=== PATIENT | male | born 1940 | race Caucasian/White ===

== ENCOUNTER 2020-03-02 09:07 | Outpatient (RCR) | payer MEDICARE, SELFPAY | END 2020-03-02 23:59 | LOC: IMMUN 09:07 | PROVIDERS: PCP Family Medicine; Visit Provider Family Medicine | DX: Z23 Encounter for immunization (principal) | CPT/HCPCS: 0011A; 0012A; 91301 ==

== ENCOUNTER 2020-10-16 21:11 | Emergency (ER) | payer MEDICARE, SELFPAY ==
[2020-10-16 21:12] VITALS: BP 139/108; PULSE 66; RESP 18; TEMP 36.6; O2SAT 97; BMI 22.1
--- NOTE | 2020-10-16 21:18 | RAD_ITS ---
STUDY: X-RAY - RIGHT SHOULDER REASON FOR EXAM: Male, 80 years old. FALL TECHNIQUE: 2 view(s) of the shoulder. COMPARISON: Right shoulder x-ray dated MAY 28, 2012 FINDINGS: There is complete anterior and slight inferior dislocation of the humeral head from the glenoid. An impacted and slightly displaced fracture of the anterior inferior aspect of the glenoid is present as well. No visualized fracture of the humerus on the provided images. Normal acromioclavicular joint. Normal acromion. Normal humeral head and visualized proximal humerus. The soft tissue structures are unremarkable. Normal visualized pulmonary apex. RAD/Shoulder min 2 Views IMPRESSION: 1. Complete anterior and slight inferior dislocation of the humeral head from the glenoid. 2. An impacted and slightly displaced fracture of the anterior inferior aspect of the glenoid is present as well. No visualized fracture of the humerus on the provided images. Electronically Signed: Mt Gambino MD at 22:27 EDT , Service support ,
--- NOTE | 2020-10-16 22:03 | RAD_ITS ---
STUDY: X-RAY - RIGHT SHOULDER REASON FOR EXAM: Male, 80 years old. reduction TECHNIQUE: 2 view(s) of the shoulder. COMPARISON: Prior study on the same day at 9:40 PM FINDINGS: Follow-up study at 10:12 PM Status post near complete reduction of the previously dislocated humeral head, mild inferior subluxation persists, but improved from the prior study. Normal acromioclavicular joint. Normal acromion. The soft tissue structures are unremarkable. Normal visualized pulmonary apex. RAD/Shoulder min 2 Views IMPRESSION: Status post near complete reduction of the previously dislocated humeral head, mild inferior subluxation persists, but improved from the prior study. Electronically Signed: Mt Gambino MD at 23:34 EDT , Service support ,
--- NOTE | 2020-10-16 23:00 | EDS_ITS ---
HPI HPI - Fall History of Present Illness Chief Complaint: Fall Narrative Narrative: Patient presenting for evaluation secondary to a fall with a right shoulder injury. Patient states that he was doing something on some stairs, he reached around to hand a telephone to somebody, and suffered a fall. Patient states that he had immediate onset of severe right shoulder pain. He reports that he has multiple other abrasions associated with this. Pain is moderate to severe. He denies hitting his head or loss of consciousness. He denies that he is on any sort of anticoagulants. Review of systems otherwise negative. PFSH PFSH Allergy/AdvReac Type Severity Reaction Status Date / Time No Known Allergies Allergy Verified 10/16/20 21:14 Social History Smoking Status: Never smoker ROS ROS ED Constitutional Constitutional ED: Denies chills or fever(s) ENT ENT ED: Denies rhinorrhea Cardiovascular Cardiovascular: Denies chest pain Respiratory/Chest Respiratory/Chest: Denies cough or dyspnea Gastrointestinal Gastrointestinal: Denies abdominal pain, diarrhea, nausea or vomiting Genitourinary Genitourinary ED: Denies dysuria or hematuria Musculoskeletal Musculoskeletal: Reports other Details: Shoulder pain Integumentary Reports Abrasions Neurologic Neurologic: Denies paresthesias or weakness Psychiatric Psychiatric: Denies depression Endocrine Endocrinology: Denies fatigue Allergic/Immunologic Allergic/Immunologic ED: Denies urticaria EXAM Physical Exam Const Vital Signs: 10/16/20 21:12 Temperature 97.9 F Temperature Source Temporal Pulse Rate 66 Respiratory Rate 18 Blood Pressure 139/108 H Blood Pressure Mean 118 Pulse Ox 97 Oxygen Delivery Method Room Air Positive well nourished and well developed Constitutional Narrative: Well-appearing age-appropriate elderly male no acute distress sitting upright in the bed holding his arm in a comfort position General Appearance ED: well developed and NAD HEENT Reports moist mucous membranes Negative for trauma or tenderness Eyes EOMs intact bilaterally Neck full ROM, no lymphadenopathy, supple and no JVD General: Negative for tenderness Chest Wall inspection of chest normal Resp normal respiratory effort and clear to auscultation bilaterally Cardio regular rate, regular rhythm, no murmurs and peripheral pulses 2+ throughout Cardio Narrative: 2+ radial pulses bilaterally symmetric GI normal to inspection, nondistended, normoactive bowel sounds, non-tender and no masses Palpation: soft Back/Spine normal to inspection Back/Spine Narrative: No spinal tenderness is noted Extremity Extremity Narrative: Examination patient's extremities. Patient has an abrasion over his right elbow. He has some abrasions over the left small toe as well as his left hand. These did not require suture repair. Patient is obvious deformity of his right shoulder. His glenoid is palpable. He has normal distal sensation and distal pulses. Limited range of motion secondary to pain. General Extremety ED: Negative for tenderness Neuro oriented x3 and no sensory deficits noted Sensorium / Orientation: alert Motor Exam: strength 5/5 throughout Psych mental status grossly normal Skin no rashes or lesions noted Rashes: no rashes MDM MDM MDM Narrative Medical decision making narrative: Patient presented secondary to a fall. Primary is in exam required no intervention secondary exam showed some abrasions as well as a deformity to the patient's right shoulder. By my personal review the patient's shoulder was dislocated on his initial x-ray. It was reduced as noted in the procedure note. Patient's joint is still somewhat lax, but the reduction was successful by my personal review of the patient's postreduction x- rays. Patient will follow up with orthopedics. Radiography Diagnostic Testing: Radiology Impression Shoulder X-Ray 10/16/20 21:18 IMPRESSION: 1. Complete anterior and slight inferior dislocation of the humeral head from the glenoid. 2. An impacted and slightly displaced fracture of the anterior inferior aspect of the glenoid is present as well. No visualized fracture of the humerus on the provided images. Electronically Signed: Mt Gambino MD at 22:27 EDT , Service support , Shoulder X-Ray 10/16/20 22:03 IMPRESSION: Status post near complete reduction of the previously dislocated humeral head, mild inferior subluxation persists, but improved from the prior study. Electronically Signed: Mt Gambino MD at 23:34 EDT , Service support , Procedures Other Procedures Procedure(s): Patient was verbally consented for closed reduction of the right shoulder. Patient was placed in a seated position, upright at the edge of the bed. Nursing staff provided scapular manipulation. Fulcrum technique was utilized, and the patient's shoulder was successfully reduced. Patient tolerated this well. Discharge Plan Triage Chief Complaint: Fall ED Provider: Terrell Lizama Dx/Rx/DC Orders Clinical Impression: Anterior shoulder dislocation, Glenoid fracture of shoulder Instructions: ED Dislocation: Shoulder (Reduced) Primary Care Provider: Willis Segura Referrals: Man Perez DO [STAFF PHYSICIAN] - 3-5 Days Willis Segura MD [Primary Care Provider] - Disposition Disposition: Home, Self Care
[2020-10-16 23:50] VITALS: BP 185/96; PULSE 50; RESP 16
== END 2020-10-16 23:51 | disposition home or self-care (01) ==
PROVIDERS: Emergency Provider Emergency Medicine; PCP Family Medicine
DX: S42.141A Displaced fracture of glenoid cavity of scapula, right shoulder, initial encounter for closed fracture (principal); S43.014A Anterior dislocation of right humerus, initial encounter; S90.415A Abrasion, left lesser toe(s), initial encounter; S50.311A Abrasion of right elbow, initial encounter; W19.XXXA Unspecified fall, initial encounter; Y93.9 Activity, unspecified; Y92.9 Unspecified place or not applicable
CPT/HCPCS: 23650; 73030; 99283

== ENCOUNTER → 2020-11-02 07:45 | Outpatient (CLI) | payer MEDICARE, SELFPAY ==
--- NOTE | 2020-11-02 07:47 | CT_ITS ---
STUDY: CT RIGHT SHOULDER REASON FOR EXAM: Male, 80 years old. RIGHT SHOULDER JOINT SPRAIN RADIATION DOSAGE (If Supplied By Facility): CTDIvol = ( 24.58 ) mGy, DLP = ( 499.14 ) mGycm TECHNIQUE: The patient was scanned in a multi detector CT scanner. High resolution transaxial imaging was performed without the administration of intravenous contrast material. Sagittal and coronal images were reconstructed. Individualized dose optimization techniques were used for this CT. COMPARISON: None. FINDINGS: Normal glenohumeral articulation. There is evidence of a tiny avulsion fracture along the anterior inferior glenoid. An avulsion fracture is also seen along the posterior posterior inferior glenoid. This is in keeping with a slap lesion. Normal humeral head, neck and tuberosities. Normal coracoid process. Normal visualized lateral clavicle. Normal acromioclavicular articulation. There is a Type II morphology (curved), with a neutral orientation. Normal visualized muscles and soft tissue structures. CT/Extremity Upper without Contra IMPRESSION: Findings in keeping with a SLAP lesion of the glenoid. Electronically Signed: Franco Smith MD at 9:05 EDT , Service support ,
== END ==
PROVIDERS: PCP Family Medicine; Referring Provider Orthopaedic Surgery; Visit Provider Orthopaedic Surgery
DX: S43.491A Other sprain of right shoulder joint, initial encounter (principal)
CPT/HCPCS: 73200

== ENCOUNTER 2020-12-20 09:00 | Outpatient (RCR) | payer MEDICARE, SELFPAY ==
--- NOTE | 2020-11-01 10:43 | HP.PTEVAL_ITS ---
Patient's Visit Information KAVON CHACON is a 80 year old M referred to Physical Therapy by Dr. Terrell Dao DO with a diagnosis of R shoulder strain/dislocation. Date of Evaluation: 11/01/20 Physical Therapist: Eduardo Aceves, ROLANDAT, OCS, CSCS - Visit Plan Frequency: 2x /Week Duration: 4-6 Weeks Plan: 2x/week for 4-6 weeks as needed for : 1. Gentle progression of ROM elevation as tolerated and rotation R shoulder. 2. RC and scap and postural strength. 3. progress to general UE strenght when tolerated and painfree. Gradually progression back to jog, bike, lift in gym. - Subjective R shoulder pain. Dislocated it answering phone walking on steps and fell down. Went to ER with dislocation on 10/16/20. X rays in ER was dislocated and reset in ER. Sent to ortho at [facility] and X rays show he needed surgery and would do in [place]. They blew him off and he made appointment at [facility] with Feliberto. Was in a sling this whole time. He told him he can take sling off at home and has not worn it since. he set up [employer] which will be tomorrow. Dr. Clifford does not think he needs surgery. Would try PT because it is the first time it dislocated. R shoulder has not been great since then. He has not been wearing, Was put on tramadol but not helping. Has not had a good night sleep since this happened. It wakes him up at night. Sleeps on back. He is stil lusing it as much as He can. It hurts to lift the arm. Basic ADLs are getting done but dressing hurts. Slow. Cannot do UE in gym at . Not employed. Spends day woriong running, biking around home and this is holding him back. - Pain R shoulder Pain Intensity (Out of 10): 0 Pain Intensity Range: 0, 8 Comment: worse with movement or on back sleeping. - Objective R Shoulder held protected adn protracted scap and forward head, R scap slightly elevated. Kyphosis in posture. R shoulder tender at joint line posterior and anterior minimally. R scap painful at first to move but improved as moved it more and then good mobility. L shoulder AROM WNL elevation to 155 and ext rotation to 20 and IR to L5. R shoulder AROM 20 elevation, 10 ext rotation and PSIS IR. PROM R shoulder 90 elevation abd and flexion, 18 ext rotation with firm endfeel, 80 IR at 80 abd self limited. Elevation is tight endfeel. Elbows and wirsts aROM symmetrical and WFL, R elbow extension hesitant but able. reflexes 2/3 bi and tric B. Sensation WNL to gross light touch in UE. + apprehension test. - sulcus.Unable to o drop arm , Possibly slight + ext rotati on lag test but defintiely weak in ext rotationa dn painful on R at 3 vs 4 L. IR 4- R and 4 L. Bi4- R and 4 L, triceps 4- R and 4 L. - Balance/Special Test Scores Quick DASH Score: 63.6350 - Goals Goal 1:: Full aROM R shoulder without hesitation Goal Time Frame: 2-4 Weeks Goal 2:: Sleep without waking due to pain Goal Time Frame: 2-4 Weeks Goal 3:: LT: ADLs dressing and jogging and biking without pain Goal Time Frame: 4-6 Weeks Goal 4:: Return to HP upper body workout without symptonms Goal Time Frame: 4-6 Weeks Goal 5:: Quick dash score 15 or better. Goal Time Frame: 4-6 Weeks - Rehabilitation Potential Physical Therapy Diagnosis: R shoulder strain dislocation Rehabilitation Potential: Fair - Anticipated Interventions Patient/Client Instruction: Educate patient on: Condition, Plan of Care For the Purpose of:: To decrease pain, To increase ROM, To improve muscle performance and motor function, To increase tolerance to activity/condition/position, To improve ability of physical actions for home/community/work/leisure Therapeutic Exercise to Include: Strength training, Postural training, Flexibilty training, Passive ROM, Active ROM, Scapular Strength/Stabilization For the Purpose of:: To decrease pain, To increase ROM, To improve muscle performance and motor function, To increase tolerance to ac tivity/condition/position, To improve ability of physical actions for home/community/work/leisure Manual Therapy Techniques to Include: Passive ROM For the Purpose of:: To increase ROM Cryotherapy (ice pack, ice massage): Yes For the Purpose of:: To decrease pain, To increase ROM Thank you for the opportunity to evaluate your patient. For Medicare and Medicare HMO plans, please review the plan of care and approve it. It will need to be FAXED BACK to us at [phone] for Medicare purposes. For Medicare only, by signing this I certify the plan of care. Please let me know if there are questions or concerns regarding this plan of care. Physician Signature: Date:
--- NOTE | 2020-11-13 09:51 | HP.PTREVAL_ITS ---
Dr. Terrell Dao, DO, It has been my pleasure to treat KAVON CHACON over the last 3 visits for R shoulder strain/dislocation. Please see the progress note below for an update on the physical therapy plan of care! Subjective: Doctor said he cannot operate becasue fracture is too small(avulsion fracture). Put in sling until tomorrow. Put on oxycodone which helps a little bit. In sling does not have a lot of pain. Sleep is better than last few weeks. Will see doctor again tomorrow. Objective/Function: PROM 130 flexion but hard for patient to relax, no pain, 25 ext rotation with pain and 40 IR at 80 abd with pain. hard for paitnet to relax elbow and shoulder. Dons and doffs sling I today. Pt says he is supposed to be in sling at all times and so has stopped HEP. WE NEED CLARITY ON PRECAUTIONS FROM DOCTOR ON ROM AND STRENGTH LIMITATIONS WHIVH PATIENT WILL GET TOMORROW AT F/U OR DOCTOR CAN FAX TO THERAPIST. Plan Plan: Pt to get clarity from doctor tomoorow on precautions in therapy, ROM and strength OK? with his type of fracture and f/u later in week for new POC or pr ogression. Balance/Gait/Functional tests - Balance/Special Test Scores Quick DASH Score: 63.6350 Goals Goal 1:: Full aROM R shoulder without hesitation Goal Time Frame: 2-4 Weeks Goal 2:: Sleep without waking due to pain Goal Time Frame: 2-4 Weeks Goal 3:: LT: ADLs dressing and jogging and biking without pain Goal Time Frame: 4-6 Weeks Goal 4:: Return to HP upper body workout without symptonms Goal Time Frame: 4-6 Weeks Goal 5:: Quick dash score 15 or better. Goal Time Frame: 4-6 Weeks Anticipated Interventions Patient/Client Instruction: Educate patient on: Condition, Plan of Care For the Purpose of:: To decrease pain, To increase ROM, To improve muscle performance and motor function, To increase tolerance to activity/condition/position, To improve ability of physical actions for home/community/work/leisure Therapeutic Exercise to Include: Strength training, Postural training, Flexibilty training, Passive ROM, Active ROM, Scapular Strength/Stabilization For the Purpose of:: To decrease pain, To increase ROM, To improve muscle performance and motor function, To increase tolerance to activity/condition/position, To improve ability of physical actions for home/community/work/leisure Manual Therapy Techniques to Include: Passive ROM For the Purpose of:: To increase ROM Cryotherapy (ice pack, ice massage): Yes For the Purpose of:: To decrease pain, To increase ROM Please do not hesitate to contact me at [phone] by phone or if you have questions or concerns regarding this new plan of care! Sincerely, Eduardo Aceves, DPT, OCS, CSCS
--- NOTE | 2020-12-20 09:36 | HP.PTREVAL ---
Dr. Terrell Dao, DO, It has been my pleasure to treat KAVON CHACON over the last 13 visits for R shoulder strain/dislocation. Please see the progress note below for an update on the physical therapy plan of care! Subjective: Sleeping much better, About 80%. Otherwise arm feels good. I can do almost activities at home. Objective/Function: AROM is symmetrical between UE. No pain. 150 flexion and abduction, 20 ext rotation on R and hand behind hime easily. Strength without pain is 4- flax, abd, er, ir and 4/5 bi and triceps. Overall doing well and feeling like he can [id number] to progress on his own in the gym. Plan Plan: Pt to progress as mentioned above with ex and scap strength and contact therapist if pain returns. Will do this for one month nad then d/.c if no PT requested. Balance/Gait/Functional tests - Balance/Special Test Scores Quick DASH Score: 4.5450 Goals Goal 1:: Full aROM R shoulder without hesitation Goal Time Frame: 2-4 Weeks Goal Progress: Goal Met Goal 2:: Sleep without waking due to pain Goal Time Frame: 2-4 Weeks Goal Progress: Goal Met Goal 3:: LT: ADLs dressing and jogging and biking without pain Goal Time Frame: 4-6 Weeks Goal Progress: Goal Met Goal 4:: Return to HP upper body workout without symptonms Goal Time Frame: 4-6 Weeks Goal Progress: Goal Met Goal 5:: Quick dash score 15 or better. Goal Time Frame: 4-6 Weeks Goal Progress: Goal Met Anticipated Interventions Patient/Client Instruction: Educate patient on: Condition, Plan of Care For the Purpose of:: To decrease pain, To increase ROM, To improve muscle performance and motor function, To increase tolerance to activity/condition/position, To improve ability of physical actions for home/community/work/leisure Therapeutic Exercise to Include: Strength training, Postural training, Flexibilty training, Passive ROM, Active ROM, Scapular Strength/Stabilization For the Purpose of:: To decrease pain, To increase ROM, To improve muscle performance and motor function, To increase tolerance to activity/condition/position, To improve ability of physical actions for home/community/work/leisure Manual Therapy Techniques to Include: Passive ROM For the Purpose of:: To increase ROM Cryotherapy (ice pack, ice massage): Yes For the Purpose of:: To decrease pain, To increase ROM Please do not hesitate to contact me at [phone] by phone or if you have questions or concerns regarding this new plan of care! Sincerely, Eduardo Aceves, DPT, OCS, CSCS
--- NOTE | 2021-02-23 10:07 | HP.PTDCSUM ---
It has been my pleasure to treat KAVON CHACON referred by Dr. Terrell Dao DO, with the diagnosis of R shoulder strain/dislocation for a total of 13 visit(s). Discharge Date: Please see the following information for a summary of their discharge status. Subjective: Sleeping much better, About 80%. Otherwise arm feels good. I can do almost activities at home. R shoulder Pain Intensity (Out of 10): 0 % Improvement: 80 Objective/Function: AROM is symmetrical between UE. No pain. 150 flexion and abduction, 20 ext rotation on R and hand behind hime easily. Strength without pain is 4- flax, abd, er, ir and 4/5 bi and triceps. Overall doing well and feeling like he can [id number] to progress on his own in the gym. Goal 1:: Full aROM R shoulder without hesitation Goal Progress: Goal Met Goal 2:: Sleep without waking due to pain Goal Progress: Goal Met Goal 3:: LT: ADLs dressing and jogging and biking without pain Goal Progress: Goal Met Goal 4:: Return to HP upper body workout without symptonms Goal Progress: Goal Met Goal 5:: Quick dash score 15 or better. Goal Progress: Goal Met Plan: Pt to progress as mentioned above with ex and scap strength and contact therapist if pain returns. Will do this for one month nad then d/.c if no PT requested. If there are questions or concerns regarding this patient's physical therapy, please feel free to call me at [phone]. Thank you for the referral of this patient. Sincerely, Eduardo Aceves, DPT, OCS, CSCS Balance/Gait/Functional tests - Balance/Special Test Scores Quick DASH Score: 4.5450
== END 2020-12-20 19:00 | disposition home or self-care (01) ==
LOC: PT 09:00
PROVIDERS: PCP Family Medicine; Referring Provider Orthopaedic Surgery; Visit Provider Orthopaedic Surgery
DX: S43.491D Other sprain of right shoulder joint, subsequent encounter (principal); S43.084D Other dislocation of right shoulder joint, subsequent encounter
CPT/HCPCS: 97035; 97110; 97140; 97161; 97530

== ENCOUNTER 2023-01-19 09:05 | Emergency (ER) | payer MEDICARE, SELFPAY ==
[2023-01-19 09:05] VITALS: BP 174/95; PULSE 82; RESP 16; TEMP 36.2; O2SAT 99; BMI 22.0
--- NOTE | 2023-01-19 09:31 | RAD_ITS ---
STUDY: X-RAY - LEFT SHOULDER REASON FOR EXAM: Male, 82 years old. Pain TECHNIQUE: 2 view(s) of the shoulder. COMPARISON: Left shoulder x-ray dated February 08, 2022 FINDINGS: There is moderate degenerative arthrosis of the glenohumeral articulation. Normal acromioclavicular joint. Normal acromion. Normal humeral head and visualized proximal humerus. The soft tissue structures are unremarkable. There is no demonstrated fracture. Normal visualized pulmonary apex. RAD/Shoulder min 2 Views IMPRESSION: Moderate left shoulder joint narrowing Electronically Signed: Mt Gambino MD at 11:08 EST ,
--- NOTE | 2023-01-19 09:31 | EKG12_ITS ---
Test Reason : GENERAL Blood Pressure : / mmHG Vent. Rate : 054 BPM Atrial Rate : 054 BPM P-R Int : 188 ms QRS Dur : 082 ms QT Int : 372 ms P-R-T Axes : 067 052 038 degrees QTc Int : 352 ms Sinus bradycardia with Premature atrial complexes Otherwise normal ECG Confirmed by CYNDI MONTANO, ARELI ([id number]), tape editor ANOOP KOEHLER ([id number]) on 01/27/2023 6:43:51 AM Referred By: Confirmed By:MARILYNN HANNA MD
--- NOTE | 2023-01-19 09:32 | EDS_ITS ---
HPI History of Present Illness Chief Complaint: Upper Extremity Injury Narrative Narrative: 82-year-old male, [id number], presents with intermittent left shoulder pain that is very fleeting that has had for the last 4 days. He relates history that he has had multiple problems with his left shoulder including dislocation. He is also had a glenoid fracture. He is also had a PRP treatment at [facility] for his shoulder recently. He denies any fevers or chills, no injury, but states he has been very active. He walks a lot and does yard work. He denies any nausea or vomiting, no shortness of breath. There are no exacerbating or alleviating factors to his left shoulder pain. The pain is very fleeting diffusely in his left shoulder and perhaps in his biceps. There is no predictability when it will come. He denies other symptoms. PFSH PFS Medical History Fracture of ischial tuberosity Allergy/AdvReac Type Severity Reaction Status Date / Time No Known Allergies Allergy Verified 11/20/22 13:48 Family History Father Hypertension Surgical History H/O arthroscopy of shoulder History of hernia repair Social History Smoking Status: Never smoker ROS ROS ED ROS Narrative Constitutional: No fever, no chills. HEENT: No sore throat. No neck pain. No loss of vision. No rhinorrhea. Cardiovascular: No chest pain. No palpitations. No pedal edema. Respiratory: No cough, no shortness of breath. Abdominal: No abdominal pain. No nausea. No vomiting. Genitourinary: No dysuria. No hematuria. Musculoskeletal: No myalgias. Left shoulder pain, sharp, fleeting, lasting only seconds. Happens a few times a day over the last 4 days. Neurologic: No headaches. No dizziness. No lightheadedness. Skin: No rash. No change in color. Psychiatric: No depression. No anxiety. EXAM Physical Exam Narrative Exam Narrative: Afebrile. Vital signs noted. HEENT: Normocephalic. Atraumatic. PERRL, EOMI. Neck soft and supple. No point tenderness or step off. Cardiovascular: Regular rate and rhythm. No murmurs, rubs, or gallops appreciated. Respiratory: No tachypnea. Lungs clear to auscultation bilaterally. Gastrointestinal: Abdomen soft, nontender, with normoactive bowel sounds. No rebound or guarding. Neurological: Awake. Alert. Nonfocal, nonlateralizing. Skin: No rash. Normal color. No pallor. Musculoskeletal: No pedal edema. Full range of motion extremities, especially left shoulder. No clinical dislocation. Neurovascular intact distally with palpable radial pulse. Able to raise arm above head without difficulty. Const Vital Signs: 01/19/23 09:05 Temperature 97.2 F L Temperature Source Temporal Pulse Rate 82 Respiratory Rate 16 Blood Pressure 174/95 H Blood Pressure Mean 121 Pulse Ox 99 Oxygen Delivery Method Room Air MDM MDM MDM Narrative Medical decision making narrative: In the differential diagnosis would be cervical radiculopathy versus arthritis of the left shoulder/pinched nerve. I have low suspicion for cardiac etiology as the pain is very fleeting and the history and physical does not support this. He shows no other symptoms. He may have overuse syndrome as well. He may be more of a bursitis. I do not feel laboratory work is indicated, and I discussed this with the patient and his who agree. He states he recently had laboratory work which was normal. I will repeat a x-ray of the left shoulder to help rule out fracture, and obtain an EKG to rule out STEMI. EKG was obtained and interpreted by myself independently as sinus bradycardia with PACs at [address] changes. No STEMI. X-rays of the left shoulder interpreted by myself independently shows no evidence of fracture or dislocation. Patient has not experienced any pain currently during his emergency department course. They did not want to wait for the radiology read, but I do feel that he can be discharged home with follow-up to his primary care provider. Return instructions to the emergency department were reviewed. Disposition is discharged in stable condition. 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 History & Record Review Discussion w/independent historian: Patient and Family () Additional record(s) reviewed:: Prior ED visit Discharge Plan Triage Chief Complaint: Upper Extremity Injury ED Provider: Buddy De Los Santos Dx/Rx/DC Orders Clinical Impression: Shoulder pain, left Instructions: ED Shoulder Pain, Uncertain Cause Primary Care Provider: Willis Segura Referrals: Willis Segura MD [Primary Care Provider] - 3-5 Days if not improving Disposition Disposition: Home, Self Care Discharge Date/Time: 01/19/23 11:11
--- NOTE | 2023-01-19 09:35 | ED.RN ---
NO OLD EKG
== END 2023-01-19 11:11 | disposition home or self-care (01) ==
PROVIDERS: Emergency Provider Emergency Medicine; PCP Family Medicine; Visit Provider Emergency Medicine
DX: M25.512 Pain in left shoulder (principal)
CPT/HCPCS: 73030; 93005; 99282

== ENCOUNTER 2023-08-15 10:00 | Outpatient (RCR) | payer MEDICARE, SELFPAY ==
--- NOTE | 2023-06-27 09:01 | HP.PTEVAL_ITS ---
Patient's Visit Information Visit Information Visit Information: KAVON CHACON is a 83 year old M referred to Physical Therapy by JANNETTE Harris with a diagnosis of Neck Strain. Date of Evaluation: 06/27/23 Physical Therapist: ROD Jacobs Visit Plan Frequency: 2x /Week Duration: 2 Months Plan: 2X/ week for 8 weeks for c-spine AROM, MT to the L side of occiput-C3), levator and sidebending stretches, Scapular strength, postural exercises with HEP HEP: wall posture, c-spine retraction against a towel in supine, Sidebend of C- spine with arms under the chair seat Subjective Subjective: Pt is not sure how he strained his neck. He is having difficulty sleeping. It starts on the L side of his neck and goes way up into the head. He has no MERRILL. This all started 11 days ago. He has no pain or tingling in the arms either. He can not get any relief from it. He has no incident. His Dr did not do an c-ray. He is R handed. He is retired. He works out, run, walks every day, yardwork, visiting family. He has pain with turning head to the R. Pain neck pain: Pain Intensity (Out of 10): 0 Pain Intensity Range: 7 Comment: turning head to the R Objective Objective: Posture: sits with fw head and head SB to the R, scapular protraction and rounded shoulders C-spine AROM: R 50% (increase pain) and L 70% rotation Flexion 100% Ext 10% R SB 50% and L 10% UE MMT: B shoulder flex 7.4 ER R 8.5 and L 6.4 Bicep reflex [employer] strength: R 40# and L 60# Palpation: tender at paraspinals occiput-C3 on the L side of C-spine. Tight traps, levator Balance/Special Test Scores Oswestry Neck Score: 11 Goals Goal 1:: I HEP Goal Time Frame: 6-8 Weeks Goal 2:: Increase posture to sit with more upright posture and not so much FW head Goal Time Frame: 6-8 Weeks Goal 3:: Increase C-spine AROM (at time of the eval: C-spine AROM: R 50% (increase pain) and L 70% rotation Flexion 100% Ext 10% R SB 50% and L 10%). Goal Time Frame: 6-8 Weeks Rehabilitation Potential Rehabilitation Potential: Good Anticipated Interventions Patient/Client Instruction: Educate patient on: Condition and Plan of Care For the Purpose of:: To decrease pain, To increase ROM, To improve nutrient de livery to tissue, To improve muscle performance and motor function, To improve ability to perform ADL's, To increase tolerance to activity/condition/position, To improve health of tissue, To decrease soft tissue restriction and To increase flexibility/ROM Therapeutic Exercise to Include: Strength training, Postural training, Flexibilty training, Neuromotor development, Passive ROM, Active ROM and Scapular Strength/Stabilization For the Purpose of:: To decrease pain, To increase ROM, To improve nutrient delivery to tissue, To improve muscle performance and motor function, To improve ability to perform ADL's, To improve performance and independence with ADL's, To improve health of tissue, To decrease soft tissue restriction and To increase flexibility/ROM Manual Therapy Techniques to Include: Mobilization, Passive ROM and Soft tissue mobilization For the Purpose of:: To decrease pain, To increase ROM, To improve nutrient delivery to tissue, To improve muscle performance and motor function, To improve health of tissue, To decrease soft tissue restriction and To increase flexibility/ROM Cryotherapy (ice pack, ice massage): Yes Thermo therapy (hot pack): Yes For the Purpose of:: To decrease pain, To increase ROM, To improve nutrient delivery to tissue and To improve muscle performance and motor function Text: Thank you for the opportunity to evaluate your patient. For Medicare and Medicare HMO plans, please review the plan of care and approve it. It will need to be FAXED BACK to us at [phone] for Medicare purposes. For Medicare only, by signing this I certify the plan of care. Please let me know if there are questions or concerns regarding this plan of care. Physician Signature: Date:_
--- NOTE | 2023-11-11 08:17 | HP.PTDCSUM ---
Discharge Summary D/C summary: It has been my pleasure to treat KAVON CHACON referred by JANNETTE Harris, with the diagnosis of Neck Strain for a total of 11 visit(s). Discharge Date: 11/11/23 Please see the following information for a summary of their discharge status. Subjective Subjective: Pt still getting the buzzing sensation. He will continue with the exercises for a month and see if they help. He will call the Dr if it gets worse Pain neck pain: Pain Intensity (Out of 10): 2 Overall Improvement % Improvement: 90 Objective Objective/Function: Pt had full understanding of HEP Goals Goal 1:: I HEP Goal 2:: Increase posture to sit with more upright posture and not so much FW head Goal 3:: Increase C-spine AROM (at time of the eval: C-spine AROM: R 50% (increase pain) and L 70% rotation Flexion 100% Ext 10% R SB 50% and L 10%). Plan Plan: Pt will discuss progress with me in a few weeks D/C Information Discharge Comments: DC PT d/c sentence: If there are questions or concerns regarding this patient's physical therapy, please feel free to call me at [phone]. Thank you for the referral of this patient. Sincerely, Maria Isabel Wong, MPT Balance/Gait/Functional tests Balance/Special Test Scores Oswestry Neck Score: 17 Improvement % Improvement: 90
== END 2023-08-15 19:00 | disposition home or self-care (01) ==
LOC: PT 10:00
PROVIDERS: PCP Family Medicine; Referring Provider Nurse Practitioner Family; Visit Provider Nurse Practitioner Family
DX: S16.1XXD Strain of muscle, fascia and tendon at neck level, subsequent encounter (principal)
CPT/HCPCS: 97110; 97140; 97162; 97530